=== PATIENT | female | born 1940 | race Caucasian/White ===

== ENCOUNTER 2023-10-27 13:19 | Day surgery (SDC) | payer MEDICARE, OTHER ==
[2023-10-27] MEDS ORDERED: Depo-Medrol 40 MG/ML IM ONE (13:20)
[2023-10-27] MEDS ORDERED: BUPIVACAINE 0.5% VIAL IJ ONE (13:20)
[2023-10-27] MEDS ORDERED: Lactated Ringers 1,000 ML IV ONE (15:12)
[2023-10-27] MEDS ORDERED: DIPRIVAN 200 MG/20 ML IV ONE (15:42)
--- NOTE | 2023-10-27 16:55 | XRAY ---
Indication: Bilateral SI joint injection. Intraoperative fluoroscopy provided for 31 seconds. 4 digital spot images submitted for interpretation demonstrates posterior needle tips projecting over the expected left and right SI joint. Small amount of contrast injected for needle tip placement. Correlate with intraoperative findings/report.
--- NOTE | 2023-10-28 09:26 | XRAY ---
31 seconds of fluoroscopy was used in surgery for a bilateral sacroiliac joint injection.
== END 2023-10-27 16:15 | disposition home or self-care (01) ==
LOC: SDC-PAIN 13:19
PROVIDERS: ATTEND Psychiatry & Neurology Pain Medicine
DX: M46.1 Sacroiliitis, not elsewhere classified (principal)
CPT/HCPCS: 01992; 27096; 72202; 77002; 93005; 99100; G0260; J1010; J2704; Q9966